=== PATIENT | female | born 1965 | race Caucasian/White ===

== ENCOUNTER 2021-07-25 14:16 | Observation (INO) ==
[2021-07-25 14:22] VITALS: BMI 30.9
--- NOTE | 2021-07-25 14:39 | DR.EXTPAIN ---
HPI Time seen Time Seen by Provider: 07/25/21 14:33 PCP Primary Care Physician: KERRI Complaint/Symptoms Chief Complaint Doctor Comments: 55 y/o female here for R ankle surgery. Pt reportedly has a fractured R ankle, s/p fall. Pt being referred here for ankle surgery with Dr Leyva. Has pain of the R ankle, constant, sharp, does not radiate. Worse with movement and ambulation. Nothing makes it better. Denies any recent illness. Pt has COPD, is a smoker, wears home O2. Chief Complaint:: PT. HAS FALLEN TWICE WITHIN THE PAST 2 WEEKS AND HAS BROKEN BOTH OF HER ANKLES. PT. IS AWAITING ORTHOPEDIC SURGERY PER DR. LEYVA. SWELLING AND BRUISING NOTED TO BILATERAL ANKLES/FEET. COVID-19 Coronavirus risk:travel/contact w/high risk person: No Has patient experienced Coronavirus symptoms: No Source History Provided: Patient Mode of arrival Mode of Arrival: Wheelchair Timing Onset of Chief Complaint: 07/11/21 PMH PMH Past Medical History: Yes Past Medical History: Anxiety, CHF, COPD, Diabetes, Dyslipidemia and Sleep Apnea Past Surgical History: Yes Surgical History: Cholecystectomy and Other Past Surgical History Comment: RIGHT KNEE, CARPAL TUNNEL BILATERALLY Family History History of Family Medical Conditions: Yes Family Medical History: Diabetes Mellitus, Cancer and Coronary Artery Disease Social History Does patient currently use any type of tobacco product: Yes Have you used tobacco products in the last 12 months: Yes Type of Tobacco Use: Cigarettes Does any household member use tobacco: Yes Alcohol Use: None Do you use any recreational Drugs:: No Lives With: Family Lives Where: Home Travel Risk Coronavirus risk:travel/contact w/high risk person: No Has patient experienced Coronavirus symptoms: No Infectious screening In the last 2 months have you had wt loss of >10#?: NO Have you had fever, night sweats or hemotysis?: No Have you traveled outside the country in the last 6 months?: No Isolation: Standard ROS Review of Systems Constitutional: No Symptoms Reported Eyes: No Symptoms Reported ENTM: No Symptoms Reported Respiratoy: No Symptoms Reported Cardiovascular: No Symptoms Reported Gastrointestinal/Abdominal: No Symptoms Reported Genitourinary: No Symptoms Reported Neurological: No Symptoms Reported Musculoskeletal: Right and Ankle Integumentary: No Symptoms Reported Hematologic/Lymphatic: No Symptoms Reported Endocrine: No Symptoms Reported Psychiatric: No Symptoms Reported PE Vital Signs Vitals: Temperature 98.4 F Pulse Rate 103 Respiratory Rate 22 Blood Pressure 168/72 O2 Sat by Pulse Oximetry 86 General Limitations: No Limitations General Appearance: Alert and In No Apparent Distress Head Head Exam: Normal Inspection Eyes Eye exam: Normal Appearance ENT ENT Exam: Normal Exam Neck Neck Exam: Normal Inspection Respiratory Respiratory Exam: Normal Lung Sounds Bilat; negative Accessory Muscle Use and Respiratory Distress Respiratory Exam: Bilateral: Clear to Auscultation Cardiovascular Cardiovascular Exam: Regular Rate, Normal Rhythm and Normal Heart Sounds Abdominal Exam Abdominal Exam: Normal Inspection, Normal Bowel Sounds and Soft; negative Tenderness Extremities Extremities Exam: Edema (of bilateral lower exts, 2-3+) Lower Extremities Ankle Exam: Tenderness (R ankle) Back Back Exam: Normal Inspection Neurological Neurological Exam: Alert, Oriented X3 and CN II-XII Intact; negative Motor Sensory Deficit Psychiatric Psychiatric Exam: Normal Affect Skin Skin Exam: Warm and Dry MDM Differential Diagnosis Differential Diagnosis: Fracture COURSE Treatment Treatment: Pt with recent fracture of her R ankle, here for surgery. Will start baseline w/u for medical clearance. Labs overall acceptable, glucose elevated at 357. Given 4 U IV regular insulin. + fluid overloaded, h/o CHF. Given lasix 20 mgs IV. Pt will be going to the OR for [facility] Labs Reviewed Laboratory Results Reviewed?: Yes Result Diagrams: 07/25/21 14:42 07/25/21 14:42 Laboratory: WBC 7.8 X10^3/uL (3.6-10.0) 07/25/21 14:42 RBC 4.95 X10^6/uL (3.5-5.4) 07/25/21 14:42 Hgb 13.1 g/dL (12.0-16.0) 07/25/21 14:42 Hct 41.0 % (36.0-47.0) 07/25/21 14:42 MCV 82.7 fL (80.0-100.0) 07/25/21 14:42 MCH 26.5 pg (27.0-34.0) L 07/25/21 14:42 MCHC 32.1 g/dL (33.0-35.0) L 07/25/21 14:42 RDW 17.4 % (11.6-16.5) H 07/25/21 14:42 Plt Count 386 X10^3/uL (150.0-450.0) 07/25/21 14:42 MPV 7.4 fL (7.4-11.0) 07/25/21 14:42 Neut % (Auto) 67.9 % (42.0-75.0) 07/25/21 14:42 Lymph % (Auto) 21.5 % (21.0-51.0) 07/25/21 14:42 [place] % (Auto) 8.3 % (0.0-13.0) 07/25/21 14:42 Eos % (Auto) 0.8 % (0.9-2.9) L 07/25/21 14:42 Baso % (Auto) 1.5 % (0.2-1.0) H 07/25/21 14:42 Neut # (Auto) 5.3 x10^3/uL (2.2-4.8) H 07/25/21 14:42 Lymph # (Auto) 1.7 X10^3/uL (1.3-2.9) 07/25/21 14:42 [place] # (Auto) 0.6 x10^3/uL (0.3-0.8) 07/25/21 14:42 Eos # (Auto) 0.1 x10^3/uL (0.0-0.2) 07/25/21 14:42 Baso # (Auto) 0.1 X10^3/uL (0.0-0.1) 07/25/21 14:42 Absolute Nucleated RBC 0.1 /100WBC 07/25/21 14:42 PT 13.6 SECONDS (11.8-14.3) 07/25/21 14:42 INR Target Range - 07/25/21 14:42 INR 1.10 (0.8-1.3) 07/25/21 14:42 APTT 28.6 SECONDS (22.9-36.5) 07/25/21 14:42 PTT Comment - 07/25/21 14:42 Sodium 135 mmol/L (136-145) L 07/25/21 14:42 Corrected Sodium 141 mmol/L (136-145) 07/25/21 14:42 Potassium 4.0 mmol/L (3.5-5.1) 07/25/21 14:42 Chloride 98 mmol/L (98-107) 07/25/21 14:42 Carbon Dioxide 33.0 mmol/L (21-32) H 07/25/21 14:42 BUN 14 mg/dL (7-18) 07/25/21 14:42 Creatinine 0.64 mg/dL (0.55-1.02) 07/25/21 14:42 Est GFR (MDRD) Af Amer > 60 (>60) 07/25/21 14:42 Est GFR (MDRD) Non-Af > 60 (>60) 07/25/21 14:42 Glucose 357 mg/dL (65-99) H 07/25/21 14:42 Calcium 8.6 mg/dL (8.5-10.1) 07/25/21 14:42 Corrected Calcium 9.8 mg/dL (8.5-10.1) 07/25/21 14:42 Total Bilirubin 0.40 mg/dL (0.2-1.0) 07/25/21 14:42 AST 12 Units/L (15-37) L 07/25/21 14:42 ALT 8 Units/L (12-78) L 07/25/21 14:42 Alkaline Phosphatase 81 Units/L (46-116) 07/25/21 14:42 Creatine Kinase 39 Units/L (26-192) 07/25/21 14:42 CK-MB (CK-2) 1.4 ng/mL (0-4.0) 07/25/21 14:42 CK/CKMB % Calc 3.6 % (<4) 07/25/21 14:42 Troponin I 0.02 ng/mL (0-1.5) 07/25/21 14:42 Total Protein 7.2 g/dL (6.4-8.2) 07/25/21 14:42 Albumin 2.5 g/dL (3.4-5.0) L 07/25/21 14:42 Globulin 4.7 g/dL (2.5-4.5) H 07/25/21 14:42 Albumin/Globulin Ratio 0.5 Ratio (1.1-2.1) L 07/25/21 14:42 SARS CoV-2 RNA Rapid REBEL Negative (NEGATIVE) 07/25/21 14:37 XRAY XRAY Interpreted by: Both X-ray Results: R ankle - trimalleolar fracture. CXR - + increased interstitial markings c/w CHF. EKG Rate: 97 [place]: Normal Rhythm: NSR Block: None ST: Nonsp Opioid Opioid Risk Tool Age (Paulino box if 16-45): No History of Preadolescent Sexual Abuse: No Total: 0 Total Score Risk Category: Low Risk Copyright: [facility] predicting aberrant behaviors Diagnosis Discharge Problem: Closed trimalleolar fracture of ankle Qualifiers: Encounter type: initial encounter Laterality: right Qualified Code(s): S82.851A - Displaced trimalleolar fracture of right lower leg, initial encounter for closed fracture
[2021-07-25 14:49] LABS: BASOPHILS # (AUTO) 0.1 X10^3/uL (0.0-0.1); BASOPHILS % (AUTO) 1.5 % (0.2-1.0); EOSINOPHILS # (AUTO) 0.1 x10^3/uL (0.0-0.2); EOSINOPHILS % (AUTO) 0.8 % (0.9-2.9); HEMOGLOBIN 13.1 g/dL (12.0-16.0); LYMPHOCYTES # (AUTO) 1.7 X10^3/uL (1.3-2.9); LYMPHOCYTES % (AUTO) 21.5 % (21.0-51.0); MEAN CORPUSCULAR HEMOGLOBIN 26.5 pg (27.0-34.0); MEAN CORPUSCULAR HGB CONC 32.1 g/dL (33.0-35.0); MEAN CORPUSCULAR VOLUME 82.7 fL (80.0-100.0); MEAN PLATELET VOLUME 7.4 fL (7.4-11.0); MONOCYTES # (AUTO) 0.6 x10^3/uL (0.3-0.8); MONOCYTES % (AUTO) 8.3 % (0.0-13.0); NEUTROPHILS # (AUTO) 5.3 x10^3/uL (2.2-4.8); NEUTROPHILS % (AUTO) 67.9 % (42.0-75.0); PLATELET COUNT 386 X10^3/uL (150.0-450.0); RED BLOOD COUNT 4.95 X10^6/uL (3.5-5.4); RED CELL DISTRIBUTION WIDTH 17.4 % (11.6-16.5); WHITE BLOOD COUNT 7.8 X10^3/uL (3.6-10.0)
[2021-07-25] MEDS ORDERED: MARCAINE 0.5% ONE (15:09)
[2021-07-25 15:11] LABS: ALANINE AMINOTRANSFERASE 8 Units/L (12-78); ALBUMIN 2.5 g/dL (3.4-5.0); ALKALINE PHOSPHATASE 81 Units/L (46-116); ASPARTATE AMINO TRANSFERASE 12 Units/L (15-37); BLOOD UREA NITROGEN 14 mg/dL (7-18); CALCIUM 8.6 mg/dL (8.5-10.1); CHLORIDE 98 mmol/L (98-107); CKMB % 3.6 % (<4); COR CA(FOR HYPOALB) 9.8 mg/dL (8.5-10.1); COR NA(FOR HYPERGLY) 141 mmol/L (136-145); CREATINE KINASE 39 Units/L (26-192); CREATINE KINASE MB 1.4 ng/mL (0-4.0); CREATININE 0.64 mg/dL (0.55-1.02); SODIUM 135 mmol/L (136-145); TOTAL PROTEIN 7.2 g/dL (6.4-8.2); TROPONIN I 0.02 ng/mL (0-1.5); eGFR NON BLACK RACES > 60 (>60)
--- NOTE | 2021-07-25 15:13 | RAD ---
HISTORYPRE OP CXR Relevant Clinical InformationSTUDYCHEST, 1 VIEWCOMPARISONNone available.FINDINGSThe trachea is midline. The cardiac silhouette is enlarged. Abnormal interstitial densities are seen throughout the lung ordonez which can be seen with bronchitis or chronic interstitial lung disease. Follow-up with CT imaging of the chest with IV contrast should be considered prior to surgery. No other acute cardiopulmonary abnormalities are seen.The lungs are clear without focal infiltrate or effusion. The bony thorax is unremarkable.IMPRESSIONAs above.Electronically signed by: SADA NEAL III (Jul 25, 2021 15:10:29)
[2021-07-25] MEDS ORDERED: LASIX IVP ONE (15:34)
--- NOTE | 2021-07-25 15:36 | RAD ---
HISTORYANKLE FXSTUDYANKLE, RIGHTCOMPARISONNo recent comparison studiesRight ankle with three viewsFINDINGSA trimalleolar ankle fracture is observed. The transversely oriented medial malleolar component is displaced by the full shafts width of the medial malleolar segment, with medial displacement of the proximal tibial shaft. There is an obliquely oriented distal fibular fracture with medial displacement of the proximal fibular shaft. Avulsion of the posterior malleolar segment is also seen on the lateral view. Post traumatic joint effusion of the ankle is noted. There is angular tilt of the talar dome medially. Peripheral vascular calcifications are in keeping with atherosclerotic disease. Tiny linear bone fragments are questioned at the tip of the fibula.IMPRESSIONDisplaced trimalleolar ankle fracture associated with soft tissue swelling and joint effusion. See above for complete details.Electronically signed by: RODERICK LOWRY (Jul 25, 2021 15:35:13)
[2021-07-25] MEDS ORDERED: HumuLIN R IV ONE (15:37)
[2021-07-25] MEDS ORDERED: LASIX ONE (15:41)
[2021-07-25] MEDS ORDERED: HumuLIN R ONE (15:42)
[2021-07-25] MEDS ORDERED: NAROPIN 0.75% EPI ONE (15:46)
[2021-07-25] MEDS ORDERED: FENTANYL VIAL INJ 100 mcg ONE (15:47)
[2021-07-25] MEDS ORDERED: PEPCID 20 MG IV PREMIX* 50 ML IV ONE (15:48)
[2021-07-25] MEDS ORDERED: OFIRMEV IV 1000 MG VIAL 1,000 MG/100 ML VIAL IV ONE (15:48)
[2021-07-25] MEDS ORDERED: MARCAINE 0.25% INJ ONE (15:51)
[2021-07-25] MEDS ORDERED: DUONEB 0.5 MG/3 MG (3 mL) NEB ONE (16:07)
[2021-07-25] MEDS ORDERED: LR 1,000 ML IV 1,000 ML IV ONE (16:15)
[2021-07-25] MEDS ORDERED: ANCEF VIAL 1 GRAM ONE (16:15)
[2021-07-25] MEDS ORDERED: NS 100 ML IV 100 ML ONE (16:15)
--- NOTE | 2021-07-25 16:39 | DR.CONSULT ---
CONSULT Consultation for Day of: Date: 07/25/21 Chief Complaint Chief Complaint: Ankle Fracture with dislocation right side. skin compromise Allergies Allergies Allergy/AdvReac Type Severity Reaction Status Date / Time No Known Drug Allergies Allergy Verified 07/25/21 14:22 History of Present Illness History of Present Illness: patient went to see one of my partners Dr. Giles today and was found to have dislocated trimal with soft tissue compromise. unable to reduce fully in office was sent urgently to ER due to skin compromise medially and will need reduction with external fixator due to instability. Past Medical History Past Medical History: Anxiety, CHF, COPD, Diabetes, Dyslipidemia and Sleep Apnea Past Surgical History Surgical History: Cholecystectomy and Other Family History Family Medical History: Diabetes Mellitus, Cancer and Coronary Artery Disease Social History Does patient currently use any type of tobacco product: Yes Have you used tobacco products in the last 12 months: Yes Type of Tobacco Use: Cigarettes Does any household member use tobacco: Yes Alcohol Use: None Medications Home Medications: No Known Drug Allergies Allergy (Verified 07/25/21 14:22) Physical Exam Vital Signs: Temperature 98.4 F Pulse Rate 92 Respiratory Rate 17 Blood Pressure 179/84 O2 Sat by Pulse Oximetry 99 Oriented: Normal Skin: Red and Wound (pre ulcerative wound on the medial ankle with sluggish CFT. ) Musculoskeletal: Ankle (dislocated right ankle. palpable pulses. she has pre ulcerative wound on the medial ankle. no open wound laterally. she has edema of the ankle. she has sluggish CFT to indurated region of medial malleoli that is >3sec. ) Plan (1) Dislocation, pathological, ankle or foot joint: Status: Acute (2) Closed trimalleolar fracture of ankle: Status: Acute Qualifiers: Encounter type: initial encounter Laterality: right Qualified Code(s): S82.851A - Displaced trimalleolar fracture of right lower leg, initial encounter for closed fracture Plan: Plan for urgent OR. patient with significant comorbidities. skin compromise medially and unstable ankle fracture dislocation necessitates reduction and stabilization with ex fix. patient will be taken to OR with regional anesthesia with light MAC. will need to have cardio see patient with further workup to follow. discussed with patient risk of limb loss due to soft tissue compromise as well as her significant comorbidities. discussed if need to convert to general may need ventilator placement due to risks.
[2021-07-25] MEDS ORDERED: KETALAR ONE (16:51)
[2021-07-25] MEDS ORDERED: DECADRON INJ ONE (16:51)
[2021-07-25] MEDS ORDERED: DIPRIVAN VIAL ONE (16:51)
[2021-07-25] MEDS ORDERED: XYLOCAINE 2 % (PLAIN) ONE (16:51)
[2021-07-25] MEDS ORDERED: ZOFRAN INJ 4 MG VIAL ONE (16:51)
[2021-07-25] MEDS ORDERED: VERSED ONE (16:51)
[2021-07-25] MEDS ORDERED: TYLENOL 325 MG TAB PO PRN (18:03)
[2021-07-25] MEDS ORDERED: ZOFRAN INJ 4 MG VIAL IVP PRN (18:03)
[2021-07-25] MEDS ORDERED: DILAUDID INJ IVP PRN (18:03)
[2021-07-25] MEDS ORDERED: COLACE CAP 100 MG PO SCH (21:00)
[2021-07-25] MEDS: DUONEB 0.5 MG/3 MG (3 mL) NEB SCH (21:06)
--- NOTE | 2021-07-25 21:30 | RAD ---
HISTORYPOST RIGHT CHANICOMPARISONAtrium Health University Cityember 2020TECHNIQUERight ankle radiographs, 3 views, AP, oblique and lateral projectionsFINDINGSOblique fracture of the distal fibula and transverse fracture of the medial malleolus; as seen on the previous exam.Significantly improved alignment of the talus in regards to the tibia status post external fixator device placement.Peripheral vascular calcifications.Diffuse soft tissue edema.IMPRESSIONStatus post placement of external fixator devices in the distal right lower extremity with improved alignment of the talus in regards to the tibia since the prior exam.Electronically signed by: Herbert Parisi (Jul 25, 2021 21:28:40)
[2021-07-26] MEDS: PERCOCET TAB 5/325 MG PO PRN ×2 (00:10→13:13)
[2021-07-26] MEDS: HumuLIN R SUBCUT PRN ×2 (00:28→06:00)
[2021-07-26 05:39] LABS: BLOOD UREA NITROGEN 17 mg/dL (7-18); CALCIUM 8.7 mg/dL (8.5-10.1); CARBON DIOXIDE 32.9 mmol/L (21-32); CHLORIDE 103 mmol/L (98-107); COR NA(FOR HYPERGLY) 146 mmol/L (136-145); CREATININE 0.68 mg/dL (0.55-1.02); SODIUM 139 mmol/L (136-145); eGFR NON BLACK RACES > 60 (>60)
[2021-07-26] MEDS: DUONEB 0.5 MG/3 MG (3 mL) NEB SCH (08:41)
[2021-07-26] MEDS ORDERED: LOVENOX INJ 40 MG SYR SC SCH (09:00)
--- NOTE | 2021-07-26 10:59 | CT ---
CT right ankle without contrastIndication: Postoperative CT scan for ankle fracture reductionCOMPARISONNovember 2020 radiographs, pre and postoperativeTECHNIQUEHelical images through the right ankle without contrast. Coronal and sagittal reformats providedFINDINGSArtifact from external fixation hardware limits sensitivity. Screws seen at the tibial diaphysis on axial image 62 and at the calcaneus on axial image 121 as well as at on axial image 125 and 130.Bones of the midfoot appear grossly intact. Obliquely oriented fibular fracture above the syndesmosis is in near anatomic alignment. Scattered osteochondral debris is seen in the tibiotalar joint, with posterior malleolus fracture at the posterior inferior tib-fib ligament attachment seen on axial image 98. Fracture at the tibial attachment of the anterior inferior tibiofibular ligament is seen on axial image 97.Medial malleolus fracture is noted on coronal image 39 and sagittal image 30, with small comminuted fracture fragments noted. Talar dome is generally intact. Posterior subtalar joints appear generally intact. There is slight posterior displacement of the distal fibular fracture on sagittal image 47. The tibia-fibular joint may be slightly subluxed medially with medial displacement of the distal medial malleolus fracture fragment on coronal images 41-44.There is soft tissue swelling about the ankle. Visualized extensor tendons are intact. Vascular calcifications noted, possibly atherosclerotic or diabetic. Achilles tendon is grossly intact. Flexor tendons and tarsal tunnel structures appear normal. Peroneal tendons appear grossly intact. Ankle ligaments not well seen due to artifactIMPRESSION1. Trimalleolar fracture reduced in near anatomic alignment with external fixation hardware in place.2. Slight displacement of the medial and lateral malleolar fractures as well as slight lateral displacement of the tibiotalar joint noted.3. Vasculature shows calcifications.4. There is soft tissue swelling, with comminuted fracture fragments about the joint. Small osteochondral fracture fragments are scattered within the tibiotalar joint spacesElectronically signed by: SAGAR HATFIELD (Jul 26, 2021 10:57:19)
[2021-07-26 11:41] VITALS: BP 162/73
--- NOTE | 2021-07-26 11:42 | DR.SSS ---
SHORT STAY SUMMARY Admission Date Date of Admission: 07/25/21 Discharge Date Discharge Date: 07/26/21 Admission Diagnoses Admission Diagnoses: Right ankle fracture Discharge Diagnoses Discharge Diagnoses: Right ankle repair with reduction and fixation Chief Complaint Chief Complaint: ankle pain History of Present Illness History of Present Illness: Ms Oconnor is a 55y/o female with a PMH of Severe COPD, CHF, DM and HLD presented with ankle pain due to a fall. Patient was seen by Podiatry and found to have ankle fracture/dislocation which was unable to be reduced in clinic. Patient was urgently taken to the OR was reduction and fixation. Due to patient's severe COPD/CHF, she was admitted overnight for monitoring. Past Medical History Past Medical History: Anxiety, CHF, COPD, Diabetes, Dyslipidemia and Sleep Apnea Past Surgical History Surgical History: , Cholecystectomy and Ortho Surgery Allergies Allergies Allergy/AdvReac Type Severity Reaction Status Date / Time No Known Drug Allergies Allergy Verified 07/25/21 14:22 Medications Home Medications: No Known Drug Allergies Allergy (Verified 07/25/21 14:22) CONTINUE taking the following medications aspirin 81 mg PO DAILY 07/25/21 [History] atorvastatin 40 mg PO DAILY 07/25/21 [History] clopidogrel 75 mg PO DAILY 07/25/21 [History] fluticasone propion-salmeterol [Advair Diskus] 1 inh INHALATION BID 07/25/21 [History] fluticasone propionate 2 spray INTRANASAL DAILY 07/25/21 [History] gabapentin 600 mg PO TID 07/25/21 [History] insulin detemir U-100 [Levemir FlexTouch U-100 Insuln] 20 unit SUBCUT DAILY 07/25/21 [History] insulin detemir U-100 [Levemir FlexTouch U-100 Insuln] 45 unit SUBCUT HS 07/25/21 [History] loratadine 10 mg PO DAILY 07/25/21 [History] meclizine 25 mg PO DAILY PRN 07/25/21 [History] pantoprazole 40 mg PO DAILY 07/25/21 [History] tiotropium bromide [Spiriva with HandiHaler] 1 cap INHALATION DAILY 07/25/21 [History] Family History Family Medical History: Diabetes Mellitus, Cancer and Coronary Artery Disease Social History Does patient currently use any type of tobacco product: Yes Have you used tobacco products in the last 12 months: Yes Type of Tobacco Use: Cigarettes Does any household member use tobacco: Yes Alcohol Use: None Drug Use: None Review of Systems Constitutional: No Symptoms Reported Eyes: No Symptoms Reported ENT: No Symptoms Reported Respiratory: Other (chronic dyspnea ) Cardiovascular: No Symptoms Reported Gastrointestinal: No Symptoms Reported Genitourinary: No Symptoms Reported Musculoskeletal: Foot Pain Skin: No Symptoms Reported Neurological: No Symptoms Reported Physical Exam Vital Signs: Last Vital Signs Temp 98.7 F 07/26/21 11:40 Pulse 94 H 07/26/21 11:40 Resp 19 07/26/21 11:40 BP 162/73 07/26/21 11:40 Pulse Ox 94 L 07/26/21 11:40 Oriented: Normal Eyes: Normal Ear: Normal Nose: Normal Throat: Normal Respiratory: Diminished Throughout Cardiovascular: Normal Auscultation: Bowel Sounds: Normal Palpation: Normal Tenderness: Normal Skin: Normal Musculoskeletal: Right and Ankle (wrapped ) Psychiatric: Normal Mood Description: Calm Affect: Normal Speech Pattern: Clear and Appropriate Labs Labs: Laboratory Last Values WBC 7.8 X10^3/uL (3.6-10.0) 07/25/21 14:42 RBC 4.95 X10^6/uL (3.5-5.4) 07/25/21 14:42 Hgb 13.1 g/dL (12.0-16.0) 07/25/21 14:42 Hct 41.0 % (36.0-47.0) 07/25/21 14:42 MCV 82.7 fL (80.0-100.0) 07/25/21 14:42 MCH 26.5 pg (27.0-34.0) L 07/25/21 14:42 MCHC 32.1 g/dL (33.0-35.0) L 07/25/21 14:42 RDW 17.4 % (11.6-16.5) H 07/25/21 14:42 Plt Count 386 X10^3/uL (150.0-450.0) 07/25/21 14:42 MPV 7.4 fL (7.4-11.0) 07/25/21 14:42 Neut % (Auto) 67.9 % (42.0-75.0) 07/25/21 14:42 Lymph % (Auto) 21.5 % (21.0-51.0) 07/25/21 14:42 [place] % (Auto) 8.3 % (0.0-13.0) 07/25/21 14:42 Eos % (Auto) 0.8 % (0.9-2.9) L 07/25/21 14:42 Baso % (Auto) 1.5 % (0.2-1.0) H 07/25/21 14:42 Neut # (Auto) 5.3 x10^3/uL (2.2-4.8) H 07/25/21 14:42 Lymph # (Auto) 1.7 X10^3/uL (1.3-2.9) 07/25/21 14:42 [place] # (Auto) 0.6 x10^3/uL (0.3-0.8) 07/25/21 14:42 Eos # (Auto) 0.1 x10^3/uL (0.0-0.2) 07/25/21 14:42 Baso # (Auto) 0.1 X10^3/uL (0.0-0.1) 07/25/21 14:42 Absolute Nucleated RBC 0.1 /100WBC 07/25/21 14:42 PT 13.6 SECONDS (11.8-14.3) 07/25/21 14:42 INR Target Range - 07/25/21 14:42 INR 1.10 (0.8-1.3) 07/25/21 14:42 APTT 28.6 SECONDS (22.9-36.5) 07/25/21 14:42 PTT Comment - 07/25/21 14:42 Sodium 139 mmol/L (136-145) 07/26/21 05:04 Corrected Sodium 146 mmol/L (136-145) H 07/26/21 05:04 Potassium 4.4 mmol/L (3.5-5.1) 07/26/21 05:04 Chloride 103 mmol/L (98-107) 07/26/21 05:04 Carbon Dioxide 32.9 mmol/L (21-32) H 07/26/21 05:04 BUN 17 mg/dL (7-18) 07/26/21 05:04 Creatinine 0.68 mg/dL (0.55-1.02) 07/26/21 05:04 Est GFR (MDRD) Af Amer > 60 (>60) 07/26/21 05:04 Est GFR (MDRD) Non-Af > 60 (>60) 07/26/21 05:04 Glucose 379 mg/dL (65-99) H 07/26/21 05:04 POC Glucose (mg/dL) 310 mg/dL (65-99) H 07/26/21 11:27 Calcium 8.7 mg/dL (8.5-10.1) 07/26/21 05:04 Corrected Calcium 9.8 mg/dL (8.5-10.1) 07/25/21 14:42 Total Bilirubin 0.40 mg/dL (0.2-1.0) 07/25/21 14:42 AST 12 Units/L (15-37) L 07/25/21 14:42 ALT 8 Units/L (12-78) L 07/25/21 14:42 Alkaline Phosphatase 81 Units/L (46-116) 07/25/21 14:42 Creatine Kinase 39 Units/L (26-192) 07/25/21 14:42 CK-MB (CK-2) 1.4 ng/mL (0-4.0) 07/25/21 14:42 CK/CKMB % Calc 3.6 % (<4) 07/25/21 14:42 Troponin I 0.02 ng/mL (0-1.5) 07/25/21 14:42 Total Protein 7.2 g/dL (6.4-8.2) 07/25/21 14:42 Albumin 2.5 g/dL (3.4-5.0) L 07/25/21 14:42 Globulin 4.7 g/dL (2.5-4.5) H 07/25/21 14:42 Albumin/Globulin Ratio 0.5 Ratio (1.1-2.1) L 07/25/21 14:42 SARS CoV-2 RNA Rapid REBEL Negative (NEGATIVE) 07/25/21 14:37 Assessment/Plan (1) Dislocation, pathological, ankle or foot joint: (2) Closed trimalleolar fracture of ankle: Hospital Course Hospital Course: Patient was admitted for right ankle fracture requiring urgent repair. She was evaluate at the clinic by Podiatry and urgently scheduled for repair and fixation. She uses 4L O2 at home due to severe COPD. Patient had no complications during surgery. She was admitted overnight for observation. She remained on her baseline home O2 4L. Her ankle pain was well controlled. She was stable for discharge. She will follow up with Podiatry and PCP as scheduled. Discharge Medications Discharge Medications: Home Medication List aspirin 81 mg PO DAILY 07/25/21 [History] atorvastatin 40 mg PO DAILY 07/25/21 [History] clopidogrel 75 mg PO DAILY 07/25/21 [History] fluticasone propion-salmeterol [Advair Diskus] 1 inh INHALATION BID 07/25/21 [History] fluticasone propionate 2 spray INTRANASAL DAILY 07/25/21 [History] gabapentin 600 mg PO TID 07/25/21 [History] insulin detemir U-100 [Levemir FlexTouch U-100 Insuln] 20 unit SUBCUT DAILY 07/25/21 [History] insulin detemir U-100 [Levemir FlexTouch U-100 Insuln] 45 unit SUBCUT HS 07/25/21 [History] loratadine 10 mg PO DAILY 07/25/21 [History] meclizine 25 mg PO DAILY PRN 07/25/21 [History] pantoprazole 40 mg PO DAILY 07/25/21 [History] tiotropium bromide [Spiriva with HandiHaler] 1 cap INHALATION DAILY 07/25/21 [History] Prescriptions: Discharge Disposition Discharge Disposition: Home
[2021-07-26] MEDS ORDERED: SNACK - Diabetic Appropriate PO SCH (20:00)
== END 2021-07-26 13:40 | disposition home or self-care (01) ==
LOC: ER 14:16 → MED/SURG 14:16
PROVIDERS: ADMIT Internal Medicine; ATTEND Internal Medicine
PROC: APEXFIX (2021-07-25 15:30)
DX: Z99.81 Dependence on supplemental oxygen; M24.371 Pathological dislocation of right ankle, not elsewhere classified; E78.2 Mixed hyperlipidemia; J44.9 Chronic obstructive pulmonary disease, unspecified; Z72.0 Tobacco use; R29.6 Repeated falls; R94.31 Abnormal electrocardiogram [ECG] [EKG]; E11.65 Type 2 diabetes mellitus with hyperglycemia; S82.851A Displaced trimalleolar fracture of right lower leg, initial encounter for closed fracture; W18.39XA Other fall on same level, initial encounter; Z20.822 Contact with and (suspected) exposure to COVID-19